=== PATIENT | female | born 1955 | race Caucasian/White ===

== ENCOUNTER 2019-06-03 08:29 | Day surgery (SDC) | payer MEDICARE, OTHER ==
[~2019-06-03 08:29] MED LIST: Propofol 200 MG/20 ML SDV ONE; fentaNYL 100 MCG/2 ML SDV ONE
[2019-06-03] MEDS ORDERED: Dextrose 5%-Lactated Ringers 1,000 ML IV SCH (09:15)
[2019-06-03] MEDS ORDERED: Glycopyrrolate 0.2 MG/ML 2 ML SDV IVPUSH ONE (10:00)
[2019-06-03] MEDS ORDERED: Pantoprazole 40 MG Vial IVPUSH ONE (10:56)
[2019-06-03 12:05] VITALS: BP 124/70; PULSE 97
--- NOTE | 2019-06-06 12:59 | OR ---
DATE OF PROCEDURE: 06/03/2019 SURGEON: Reynold Gaines MD PREOPERATIVE DIAGNOSIS: Probable gastroesophageal reflux disease. POSTOPERATIVE DIAGNOSIS: Small hiatal hernia associated with active gastroesophageal reflux disease. OPERATIVE PROCEDURE: Esophagogastroduodenoscopy with biopsy of esophagogastric junction. ANESTHESIA: IV sedation. INDICATION FOR PROCEDURE: This is a 64-year-old presenting with ongoing cough. She does have some reflux related symptoms, and at this point, the question is whether or not the cough might be related to a reactive reflux disease. Plan is to proceed with upper GI endoscopy with biopsies and dilation as indicated. Potential risks including bleeding and perforation were discussed, and the patient wishes to proceed. DETAILS OF PROCEDURE: The patient was taken to the operating room and placed in a left lateral decubitus position. IV sedation was administered after which the upper GI endoscope was passed orally through the length of the esophagus into the stomach with retroflexion view of the fundus and thereafter through the pyloric channel and into the proximal duodenum. Findings included some redness in the hypopharynx and larynx consistent with some possible ongoing reflux. The upper esophageal sphincter and proximal esophagus were unremarkable. At the EG junction, the patient had a small hiatal hernia with wide-open esophagogastric junction and quite active appearing gastroesophageal reflux disease with the distal esophagus being reddened and edematous and some focal areas of fibrinous exudate present. No stricturing or plaque formation was seen. The remainder of the stomach and duodenal exams were unremarkable. At this point, biopsies obtained from the esophagogastric junction area and sent for histologic evaluation. Minimal bleeding from the biopsy sites was seen and the procedure then concluded. PLAN: The patient will be given Protonix 40 mg IV in the recovery room and will be started on Protonix 40 mg daily. I will have the patient see NALDO Saeed, at [facility] in about 3 weeks for followup of the cough and reflux disease. Over time if the cough fails to improve, one might consider an antireflux procedure as at this point it would be fairly evident that her cough at least to that extent is related to ongoing reflux. Reynold Gaines MD /[id number]
== END 2019-06-03 13:21 | disposition home or self-care (01) ==
LOC: JP.SDS 08:29
PROVIDERS: ATTEND Surgery
DX: K21.9 Gastro-esophageal reflux disease without esophagitis (principal); K44.9 Diaphragmatic hernia without obstruction or gangrene; K22.8 Other specified diseases of esophagus; F32.9 Major depressive disorder, single episode, unspecified
CPT/HCPCS: 43239; C9113; J2704; J3010; J3490; J7042; 88305

== ENCOUNTER 2020-10-27 05:50 | Emergency (ER) | payer MEDICARE, OTHER ==
[2020-10-27 06:14] VITALS: PULSE 94
[2020-10-27] MEDS ORDERED: Aspirin 81 MG Tab.Chew PO ONE (06:30)
[2020-10-27] MEDS ORDERED: Alum Hydrox/Mag Hydrox/Simeth 15 ML, Lidocaine 2% 15 ML PO ONE ×2 (06:31)
--- NOTE | 2020-10-27 06:35 | EDM.PDOC ---
<OfficerGrant - Last Filed: 10/27/20 06:32> ED HPI GENERAL MEDICAL PROBLEM - General Chief Complaint: Chest Pain Stated Complaint: CHEST PAIN Time Seen by Provider: 10/27/20 06:25 Source of Information: Reports: Patient, RN Notes Reviewed History Limitations: Reports: No Limitations - History of Present Illness INITIAL COMMENTS - FREE TEXT/NARRATIVE: 65-year-old female presents emergency department a complaint of chest pain, she states that chest pain for about 24 hours has had abdominal discomfort reflux type for about 3 days has had poor oral intake she does admit to being under a lot of stress. Feels short of breath nauseated and diaphoretic with her chest pain shortness of breath increases with exertion. She has no known cardiac history does have a history of reflux. Admits she is quite anxious about no contact with other people for a year because of the pandemic. Chest Pain Score (Numeric/FACES): 3 - Related Data Allergies Allergy/AdvReac Type Severity Reaction Status Date / Time acetaminophen [From Vicodin] AdvReac Nausea Verified 10/27/20 06:08 hydrocodone bitartrate AdvReac Nausea Verified 10/27/20 06:08 [From Vicodin] meperidine HCl [From Demerol] AdvReac Nausea Verified 10/27/20 06:08 morphine AdvReac Nausea Verified 10/27/20 06:08 Home Meds: Home Meds buPROPion HCl [Bupropion Xl] 300 mg PO DAILY 08/22/15 [History] L.acidoph,Paracasei, B.lactis [Probiotic] 1 each PO DAILY 09/14/15 [History] Montelukast [Singulair] 10 mg PO DAILY 09/14/15 [History] Fluticasone Propionate [Flonase] 1 applic DEANDRE DAILY 06/03/19 [History] Oxybutynin [Oxybutynin ER] 5 mg PO DAILY 06/03/19 [History] polyethylene glycoL 3350 [MiraLAX] 17 gm PO DAILY 06/03/19 [History] Albuterol Sulfate [Albuterol Sulfate Hfa] 18 gm IH ASDIRECTED 10/27/20 [History] Benzonatate 100 mg PO BID 10/27/20 [History] Past Medical History HEENT History: Reports: Hard of Hearing, Impaired Vision, Sinusitis Respiratory History: Reports: Bronchitis, Recurrent Gastrointestinal History: Reports: Chronic Constipation, GERD, Hemorrhoids Genitourinary History: Reports: Urinary Incontinence 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: Reports: , Prolapsed Uterus Musculoskeletal History: Reports: Arthritis, Fracture Neurological History: Reports: Migraines Psychiatric History: Reports: Anxiety, Depression, Mood Swings - Infectious Disease History Infectious Disease History: Reports: Chicken Pox, Measles, Mumps, Pertussis (Whooping Cough) - Past Surgical History HEENT Surgical History: Reports: Oral Surgery Respiratory Surgical History: Reports: None GI Surgical History: Reports: Colonoscopy Female Surgical History: Reports: None Neurological Surgical History: Reports: None Musculoskeletal Surgical History: Reports: Arthroscopic Knee, Other (See Below) Other Musculoskeletal Surgeries/Procedures:: bunionectomy Social & Family History - Tobacco Use Tobacco Use Status *Q: Never Tobacco User - Caffeine Use Caffeine Use: Reports: None - Recreational Drug Use Recreational Drug Use: No ED ROS GENERAL - Review of Systems Review Of Systems: See Below Constitutional: Denies: Fever, Chills HEENT: Reports: No Symptoms Respiratory: Reports: Shortness of Breath Cardiovascular: Reports: Chest Pain, Dyspnea on Exertion GI/Abdominal: Reports: Abdominal Pain, Nausea. Denies: Constipation, Diarrhea, Vomiting : Reports: No Symptoms ED EXAM, GENERAL - Physical Exam Exam: See Below Exam Limited By: No Limitations General Appearance: Alert, Anxious Respiratory/Chest: No Respiratory Distress, Lungs Clear, Normal Breath Sounds, No Accessory Muscle Use, Chest Non-Tender Cardiovascular: Regular Rate, Rhythm, No Murmur GI/Abdominal: Normal Bowel Sounds, Soft, Non-Tender, No Organomegaly, No Distention Departure - Departure Disposition: Home, Self-Care 01 Clinical Impression: Gas pain Referrals: PCP,None [Primary Care Provider] - Forms: ED Department Discharge Additional Instructions: Increase your Miralax and fluids to keep stools soft and regular. Use simethicone per package instructions for gas. Recheck with your provider as needed. Sepsis Event Note (ED) - Evaluation Sepsis Screening Result: No Definite Risk <[place] - Last Filed: 10/27/20 09:20> ED HPI GENERAL MEDICAL PROBLEM Abdomen Pain Score (Numeric/FACES): 8 Course - Vital Signs Last Recorded V/S: Last Vital Signs Temp 35 C L 10/27/20 06:14 Pulse 94 02/23/21 07:29 Resp 16 10/27/20 07:29 BP 122/89 10/27/20 07:29 Pulse Ox 95 10/27/20 07:29 - Orders/Labs/Meds Orders: Active Orders 24 hr Category Date Time Status Cardiac Monitoring [RC] .As Directed Care 10/27/20 06:31 Active EKG Documentation Completion [RC] ASDIRECTED Care 10/27/20 06:31 Active EKG 12 Lead [EK] Stat Ther 10/27/20 06:31 Ordered Labs: Laboratory Tests 10/27/20 10/27/20 Range/Units 06:35 06:35 WBC 7.7 (4.5-11.0) K/uL RBC 5.05 (3.30-5.50) M/uL Hgb 14.1 (12.0-15.0) g/dL Hct 43.2 (36.0-48.0) % MCV 86 (80-98) fL MCH 28 (27-31) pg MCHC 33 (32-36) % Plt Count 240 (150-400) K/uL Neut % (Auto) 79 H (36-66) % Lymph % (Auto) 11 L (24-44) % [place] % (Auto) 7 H (2-6) % Eos % (Auto) 2 (2-4) % Baso % (Auto) 0 (0-1) % Sodium 141 (140-148) mmol/L Potassium 5.1 (3.6-5.2) mmol/L Chloride 101 (100-108) mmol/L Carbon Dioxide 31 (21-32) mmol/L Anion Gap 9.2 (5.0-14.0) mmol/L BUN 17 D (7-18) mg/dL Creatinine 0.9 (0.6-1.0) mg/dL Est Cr Clr Drug Dosing 50.18 mL/min Estimated GFR (MDRD) > 60 (>60) Glucose 116 H (74-106) mg/dL Calcium 9.5 (8.5-10.1) mg/dL Total Bilirubin 0.5 (0.2-1.0) mg/dL AST 19 (15-37) U/L ALT 20 (12-78) U/L Alkaline Phosphatase 94 (46-116) U/L Troponin I < 0.017 (0.000-0.056) ng/mL Total Protein 7.2 (6.4-8.2) g/dL Albumin 3.5 (3.4-5.0) g/dL Globulin 3.7 H (2.3-3.5) g/dL Albumin/Globulin Ratio 1.0 L (1.2-2.2) Meds: Medications Discontinued Medications Generic Name Dose Route Start Last Admin Trade Name Adryanq PRN Reason Stop Dose Admin Aspirin 324 mg 10/27/20 06:30 10/27/20 06:36 Aspirin PO 10/27/20 06:31 324 mg ONETIME ONE Administration Bisacodyl 10 mg 10/27/20 08:12 10/27/20 08:17 Dulcolax RECTAL 10/27/20 08:13 10 mg ONETIME ONE Administration Al Hydroxide/Mg Hydroxide 15 0 ml 10/27/20 06:31 10/27/20 06:37 ml/ Lidocaine HCl 15 ml PO 10/27/20 06:32 15 ml ONETIME ONE Administration Lorazepam 0.5 mg 10/27/20 06:49 10/27/20 06:56 Ativan PO 10/27/20 06:50 Not Given ONETIME ONE Ondansetron HCl 4 mg 10/27/20 07:42 10/27/20 07:47 Zofran Odt PO 10/27/20 07:43 4 mg ONETIME ONE Administration Simethicone 160 mg 10/27/20 07:03 10/27/20 07:08 Simethicone PO 10/27/20 07:04 160 mg ONETIME ONE Administration - Radiology Interpretation Free Text/Narrative:: CXR-increased intestinal air seen, no chest pathology Flat/upright abd [id number] amount of air and stool present - Re-Assessments/Exams Free Text/Narrative Re-Assessment/Exam: 10/27/20 09:18 Feeling better after simethicone and a BM w/dulcolax. Departure - Departure Time of Disposition: 09:18 Condition: Fair Sepsis Event Note (ED) - Focused Exam Vital Signs: Vital Signs Temp Pulse Resp BP Pulse Ox 10/27/20 07:29 94 16 122/89 95 10/27/20 06:14 35 C L 94 13 139/75 98
[2020-10-27] MEDS ORDERED: LORazepam 0.5 MG Tab PO ONE (06:49)
[2020-10-27] MEDS ORDERED: Simethicone 80 MG Tab.Chew PO ONE (07:03)
[2020-10-27 07:30] VITALS: BP 122/89
[2020-10-27] MEDS ORDERED: Ondansetron 4 MG Tab.DIS PO ONE (07:42)
[2020-10-27] MEDS ORDERED: Bisacodyl 10 MG Supp RECTAL ONE (08:12)
--- NOTE | 2020-10-27 09:10 | CR ---
Chest 1V Frontal, Abdomen 2V AP Flat Upright CLINICAL HISTORY: Chest pain FINDINGS: The heart size, pulmonary vascularity and hilar structures are normal. No infiltrate effusion or pneumothorax is seen. There are atherosclerotic changes in the aorta. IMPRESSION: No acute cardiopulmonary process Abdomen 2V AP Flat Upright CLINICAL HISTORY: Chest and abdominal pain FINDINGS: No free air is identified. There is a mild gaseous distention of the stomach. There are scattered air-filled loops of small bowel and colon in a nonacute pattern. IMPRESSION: Mild gaseous distention in a nonacute pattern
== END 2020-10-27 09:37 | disposition home or self-care (01) ==
LOC: JP.ED 05:50
DX: R14.1 Gas pain (principal); Z88.5 Allergy status to narcotic agent
CPT/HCPCS: 36415; 71045; 74019; 80053; 84484; 85025; 93005; 99284; 99285; A9270

== ENCOUNTER 2022-07-15 07:13 | Day surgery (SDC) | payer MEDICARE, OTHER ==
[2022-07-15] MEDS ORDERED: fentaNYL 50 MCG/ML SDV ONE (07:24)
[2022-07-15] MEDS ORDERED: Propofol 200 MG/20 ML SDV ONE (07:24)
[2022-07-15] MEDS ORDERED: Midazolam 1 MG/ML 2 ML SDV ONE (07:24)
[2022-07-15] MEDS ORDERED: Sodium Chloride 0.9% 1,000 ML IV SCH (08:00)
== END 2022-07-15 10:30 | disposition home or self-care (01) ==
LOC: JP.SDS 07:13
PROVIDERS: ATTEND Surgery
DX: Z12.11 Encounter for screening for malignant neoplasm of colon (principal); K57.30 Diverticulosis of large intestine without perforation or abscess without bleeding; Z88.6 Allergy status to analgesic agent
CPT/HCPCS: G0121; J2250; J2704; J3010; J7030

== ENCOUNTER 2022-10-07 08:04 | Emergency (ER) | payer MEDICARE, OTHER ==
[2022-10-07] MEDS ORDERED: Ondansetron 4 MG/2 ML SDV IVPUSH ONE (09:19)
[2022-10-07] MEDS ORDERED: Ondansetron 4 MG/2 ML SDV ONE (09:27)
== END 2022-10-07 11:36 | disposition home or self-care (01) ==
LOC: JP.ED 08:04
DX: R11.2 Nausea with vomiting, unspecified (principal); R42 Dizziness and giddiness; K21.9 Gastro-esophageal reflux disease without esophagitis; F41.9 Anxiety disorder, unspecified; F32.A Depression, unspecified; Z79.899 Other long term (current) drug therapy; Z88.5 Allergy status to narcotic agent
CPT/HCPCS: 70450; 70450-26; 72192; 72192-26; 96374; 99283; 99284-25; J2405

== ENCOUNTER 2023-04-08 07:17 | Emergency (ER) | payer MEDICARE, OTHER ==
[2023-04-08] MEDS ORDERED: Prochlorperazine 10 MG/2 ML SDV IVPUSH ONE (08:07)
[2023-04-08] MEDS ORDERED: Sodium Chloride 0.9% 1,000 ML IV SCH (08:15)
[2023-04-08 08:23] LABS: HEMATOCRIT 42.6 % (34.3-46.0); HEMOGLOBIN 14.4 g/dL (11.2-15.5); MEAN CORPUSCULAR HEMOGLOBIN 28.5 pg (31.6-35.5); MEAN CORPUSCULAR HGB CONC 33.8 g/dL (31.6-35.5); MEAN CORPUSCULAR VOLUME 84.2 fL (81.4-99.0); RED BLOOD CELL COUNT 5.06 M/uL (3.77-5.24); WHITE BLOOD CELL COUNT,WBC 7.7 K/uL (3.2-11.0)
[2023-04-08 08:25] LABS: APPEARANCE,URINE CLEAR (CLEAR); BILIRUBIN,URINE NEGATIVE (NEGATIVE); COLOR,URINE YELLOW (YELLOW); GLUCOSE,URINE NEGATIVE (NEGATIVE); KETONES,URINE NEGATIVE (NEGATIVE); LEUKOCYTE ESTERASE,URINE NEGATIVE (NEGATIVE); NITRITE,URINE NEGATIVE (NEGATIVE); OCCULT BLOOD,URINE NEGATIVE (NEGATIVE); PH,URINE 6.5 (5.0-8.0); PROTEIN,URINE NEGATIVE (NEGATIVE); UROBILINOGEN,URINE 0.2 EU/dL (0.2-1.0)
[2023-04-08 08:26] LABS: BASE EXCESS VENOUS 3.9 mm/L; BICARBONATE,VENOUS 29.8 mmol/L; CARBOXYHEMOGLOBIN 2.1 % (0.0-1.6); METHEMOGLOBIN 0.5 %; O2 SATURATION VENOUS 80.7; OXYHEMOGLOBIN 78.6 %; PCO2 VENOUS 51.8 mm/Hg; PH,VENOUS 7.377 (7.350-7.450); TOTAL HEMOGLOBIN 14.8 g/dL (12.0-16.0)
[2023-04-08 08:30] LABS: PO2 VENOUS 49.3 mm/Hg
[2023-04-08 08:31] LABS: AMORPHOUS SEDIMENT,URINE NOT SEEN; BACTERIA,URINE NOT SEEN; EPITHELIAL CELLS,URINE FEW; MUCUS,URINE NOT SEEN; RBC,URINE NOT SEEN (0-5); WBC,URINE NOT SEEN (0-5)
[2023-04-08 08:55] LABS: ALANINE AMINOTRANSFERASE,ALT 21 U/L (12-78); ALBUMIN 3.5 g/dL (3.4-5.0); ALKALINE PHOSPHATASE 85 U/L (46-116); ASPARTATE AMNIOTRANSFERASE,AST 16 U/L (15-37); BILIRUBIN TOTAL 0.4 mg/dL (0.2-1.0); BLOOD UREA NITROGEN,BUN 11 mg/dL (7-18); CALCIUM 9.1 mg/dL (8.5-10.1); CARBON DIOXIDE,CO2 31 mmol/L (21-32); CHLORIDE,CL 102 mmol/L (100-108); CREATININE 0.8 mg/dL (0.6-1.0); EST CRCL DRUG DOSING (CG) 54.13 mL/min; ESTIMATED GFR 79 mL/min (>60); GLUCOSE RANDOM 108 mg/dL (74-106); PROTEIN TOTAL,TP 7.1 g/dL (6.4-8.2); SODIUM,NA 139 mmol/L (140-148)
== END 2023-04-08 10:12 | disposition home or self-care (01) ==
LOC: JP.ED 07:17
DX: E86.0 Dehydration (principal); K21.9 Gastro-esophageal reflux disease without esophagitis; Z79.899 Other long term (current) drug therapy; Z88.5 Allergy status to narcotic agent; Z88.8 Allergy status to other drugs, medicaments and biological substances
CPT/HCPCS: 36415; 80053; 81001; 82803; 83605; 85027; 96361; 96374; 99284; J0780; J7030; 99283

== ENCOUNTER 2023-04-23 07:26 | Emergency (ER) | payer MEDICARE, OTHER ==
[2023-04-23] MEDS ORDERED: Ketorolac 30 MG/ML SDV IVPUSH ONE (08:16)
[2023-04-23] MEDS ORDERED: Ondansetron 4 MG/2 ML SDV IVPUSH ONE (08:16)
[2023-04-23] MEDS ORDERED: Sodium Chloride 0.9% 10 ML Syringe FLUSH PRN ×2 (08:16→08:57)
[2023-04-23] MEDS ORDERED: Sodium Chloride 0.9% 1,000 ML IV SCH (08:30)
[2023-04-23 08:37] LABS: BASOPHILS ABSOLUTE AUTO 0.07 K/uL (0.00-0.10); BASOPHILS PERCENT AUTO 0.7 % (0.1-1.3); EOSINOPHILS ABSOLUTE AUTO 0.28 K/uL (0.00-0.40); EOSINOPHILS PERCENT AUTO 2.9 % (0.0-5.4); HEMATOCRIT 41.7 % (34.3-46.0); HEMOGLOBIN 14.3 g/dL (11.2-15.5); IMMATURE GRAN ABSOLUTE AUTO 0.05 K/uL (0.00-0.23); IMMATURE GRAN PERCENT AUTO 0.5 % (0.0-0.7); LYMPHOCYTES ABSOLUTE AUTO 1.16 K/uL (0.8-3.3); MEAN CORPUSCULAR HEMOGLOBIN 28.8 pg (31.6-35.5); MEAN CORPUSCULAR HGB CONC 34.3 g/dL (31.6-35.5); MEAN CORPUSCULAR VOLUME 84.1 fL (81.4-99.0); MONOCYTES ABSOLUTE AUTO 0.54 K/uL (0.20-0.90); MONOCYTES PERCENT AUTO 5.6 % (3.3-12.6); NEUTROPHILS PERCENT AUTO 78.3 % (40.0-78.1); PLATELET COUNT,PLT 220 K/uL (130-375); RED BLOOD CELL COUNT 4.96 M/uL (3.77-5.24); WHITE BLOOD CELL COUNT,WBC 9.7 K/uL (3.2-11.0)
[2023-04-23 08:57] LABS: A/G RATIO 0.9 (1.2-2.2); ALANINE AMINOTRANSFERASE,ALT 21 U/L (12-78); ALBUMIN 3.4 g/dL (3.4-5.0); ALKALINE PHOSPHATASE 82 U/L (46-116); ASPARTATE AMNIOTRANSFERASE,AST 18 U/L (15-37); BILIRUBIN TOTAL 0.4 mg/dL (0.2-1.0); BLOOD UREA NITROGEN,BUN 10 mg/dL (7-18); CALCIUM 8.9 mg/dL (8.5-10.1); CARBON DIOXIDE,CO2 30 mmol/L (21-32); CHLORIDE,CL 102 mmol/L (100-108); CREATININE 0.8 mg/dL (0.6-1.0); EST CRCL DRUG DOSING (CG) 54.13 mL/min; ESTIMATED GFR 79 mL/min (>60); GLUCOSE RANDOM 111 mg/dL (74-106); POTASSIUM,K 4.2 mmol/L (3.6-5.2); PROTEIN TOTAL,TP 7.1 g/dL (6.4-8.2); SODIUM,NA 139 mmol/L (140-148)
[2023-04-23] MEDS ORDERED: Sodium Chloride 0.9% 50 ML IV ONE (08:57)
[2023-04-23] MEDS ORDERED: Iopamidol 612 MG/ML 100 ML Bottle IV PRN (08:57)
[2023-04-23 09:02] LABS: ANION GAP 11.2 mmol/L (5.0-14.0)
[2023-04-23 09:03] LABS: AMORPHOUS SEDIMENT,URINE FEW; APPEARANCE,URINE SLIGHTLY CLOUDY (CLEAR); BACTERIA,URINE RARE; BILIRUBIN,URINE NEGATIVE (NEGATIVE); COLOR,URINE YELLOW (YELLOW); EPITHELIAL CELLS,URINE RARE; GLUCOSE,URINE NEGATIVE (NEGATIVE); KETONES,URINE NEGATIVE (NEGATIVE); LEUKOCYTE ESTERASE,URINE NEGATIVE (NEGATIVE); MUCUS,URINE MANY; NITRITE,URINE NEGATIVE (NEGATIVE); OCCULT BLOOD,URINE NEGATIVE (NEGATIVE); PROTEIN,URINE NEGATIVE (NEGATIVE); RBC,URINE 0-5 (0-5); UROBILINOGEN,URINE 0.2 EU/dL (0.2-1.0); WBC,URINE 0-5 (0-5)
== END 2023-04-23 10:59 | disposition home or self-care (01) ==
LOC: JP.ED 07:26
DX: R10.84 Generalized abdominal pain (principal); Z79.899 Other long term (current) drug therapy; Z88.5 Allergy status to narcotic agent; Z88.8 Allergy status to other drugs, medicaments and biological substances
CPT/HCPCS: 36415; 74177; 80053; 81001; 83605; 83690; 85025; 96361; 96374; 96375; 99284; J1885; J2405; J3490; J7030; Q9967

== ENCOUNTER 2023-04-26 04:07 | Inpatient (IN) | payer MEDICARE, OTHER ==
[2023-04-26 05:02] LABS: BASOPHILS ABSOLUTE AUTO 0.06 K/uL (0.00-0.10); BASOPHILS PERCENT AUTO 0.7 % (0.1-1.3); EOSINOPHILS ABSOLUTE AUTO 0.29 K/uL (0.00-0.40); EOSINOPHILS PERCENT AUTO 3.5 % (0.0-5.4); HEMATOCRIT 41.2 % (34.3-46.0); HEMOGLOBIN 13.7 g/dL (11.2-15.5); IMMATURE GRAN ABSOLUTE AUTO 0.03 K/uL (0.00-0.23); IMMATURE GRAN PERCENT AUTO 0.4 % (0.0-0.7); LYMPHOCYTES ABSOLUTE AUTO 1.26 K/uL (0.8-3.3); LYMPHOCYTES PERCENT AUTO 15.4 % (11.4-47.7); MEAN CORPUSCULAR HEMOGLOBIN 28.1 pg (31.6-35.5); MEAN CORPUSCULAR HGB CONC 33.3 g/dL (31.6-35.5); MEAN CORPUSCULAR VOLUME 84.6 fL (81.4-99.0); MONOCYTES PERCENT AUTO 7.3 % (3.3-12.6); NEUTROPHILS ABSOLUTE AUTO 5.94 K/uL (1.0-7.6); NEUTROPHILS PERCENT AUTO 72.7 % (40.0-78.1); PLATELET COUNT,PLT 215 K/uL (130-375); RED BLOOD CELL COUNT 4.87 M/uL (3.77-5.24); WHITE BLOOD CELL COUNT,WBC 8.2 K/uL (3.2-11.0)
[2023-04-26] MEDS ORDERED: Ondansetron 4 MG Tab.DIS PO ONE (05:18)
[2023-04-26 05:26] LABS: A/G RATIO 0.9 (1.2-2.2); ALANINE AMINOTRANSFERASE,ALT 20 U/L (12-78); ALBUMIN 3.3 g/dL (3.4-5.0); ALKALINE PHOSPHATASE 77 U/L (46-116); ANION GAP 5.6 mmol/L (5.0-14.0); ASPARTATE AMNIOTRANSFERASE,AST 16 U/L (15-37); BILIRUBIN TOTAL 0.5 mg/dL (0.2-1.0); BLOOD UREA NITROGEN,BUN 7 mg/dL (7-18); CALCIUM 8.9 mg/dL (8.5-10.1); CARBON DIOXIDE,CO2 30 mmol/L (21-32); CHLORIDE,CL 104 mmol/L (100-108); CREATININE 0.9 mg/dL (0.6-1.0); EST CRCL DRUG DOSING (CG) 48.11 mL/min; ESTIMATED GFR 69 mL/min (>60); GLUCOSE RANDOM 106 mg/dL (74-106); POTASSIUM,K 3.9 mmol/L (3.6-5.2); PROTEIN TOTAL,TP 6.9 g/dL (6.4-8.2); SODIUM,NA 140 mmol/L (140-148)
[2023-04-26 05:31] LABS: APPEARANCE,URINE CLEAR (CLEAR); BILIRUBIN,URINE NEGATIVE (NEGATIVE); COLOR,URINE YELLOW (YELLOW); GLUCOSE,URINE NEGATIVE (NEGATIVE); KETONES,URINE NEGATIVE (NEGATIVE); LEUKOCYTE ESTERASE,URINE NEGATIVE (NEGATIVE); NITRITE,URINE NEGATIVE (NEGATIVE); OCCULT BLOOD,URINE NEGATIVE (NEGATIVE); PH,URINE 6.5 (5.0-8.0); PROTEIN,URINE NEGATIVE (NEGATIVE); UROBILINOGEN,URINE 0.2 EU/dL (0.2-1.0)
[2023-04-26 05:38] LABS: RBC,URINE 0-5 (0-5); WBC,URINE 0-5 (0-5)
[2023-04-26 05:39] LABS: AMORPHOUS SEDIMENT,URINE NOT SEEN; BACTERIA,URINE RARE; EPITHELIAL CELLS,URINE FEW; MUCUS,URINE MODERATE
[2023-04-26] MEDS ORDERED: Lactated Ringers 1,000 ML IV SCH (11:15)
[2023-04-26] MEDS: Pantoprazole 40 MG Vial IV SCH (11:29)
[2023-04-26] MEDS: buPROPion 150 MG Tab.ER PO SCH (14:43)
[2023-04-26] MEDS: Oxybutynin 5 MG Tab PO SCH ×2 (15:11→20:37)
[2023-04-26] MEDS: Polyethylene Glycol 3350 Powder 17 GM Packet PO SCH (15:11)
[2023-04-26] MEDS: Azelastine Nasal Soln 30 ML Spray Bottle NAS SCH ×2 (16:51→20:37)
[2023-04-26] MEDS: Dextrose 5%-Lactated Ringers 1,000 ML IV SCH (19:18)
[2023-04-26] MEDS: Montelukast 10 MG Tab PO SCH (20:37)
[2023-04-26] MEDS: Benzonatate 100 MG Cap PO SCH (20:39)
[2023-04-27] MEDS: Dextrose 5%-Lactated Ringers 1,000 ML IV SCH (03:16)
[2023-04-27] MEDS ORDERED: Acetaminophen 1,000 MG in Premix Bag 1 BAG IV ONE (03:23)
[2023-04-27] MEDS ORDERED: Ondansetron 4 MG/2 ML SDV IVPUSH PRN (03:29)
[2023-04-27 04:50] LABS: BASOPHILS ABSOLUTE AUTO 0.05 K/uL (0.00-0.10); BASOPHILS PERCENT AUTO 0.8 % (0.1-1.3); EOSINOPHILS ABSOLUTE AUTO 0.27 K/uL (0.00-0.40); EOSINOPHILS PERCENT AUTO 4.2 % (0.0-5.4); HEMATOCRIT 35.9 % (34.3-46.0); HEMOGLOBIN 12.2 g/dL (11.2-15.5); IMMATURE GRAN PERCENT AUTO 0.2 % (0.0-0.7); LYMPHOCYTES PERCENT AUTO 23.4 % (11.4-47.7); MEAN CORPUSCULAR HEMOGLOBIN 28.8 pg (31.6-35.5); MEAN CORPUSCULAR VOLUME 84.7 fL (81.4-99.0); MONOCYTES ABSOLUTE AUTO 0.61 K/uL (0.20-0.90); MONOCYTES PERCENT AUTO 9.5 % (3.3-12.6); NEUTROPHILS ABSOLUTE AUTO 3.96 K/uL (1.0-7.6); NEUTROPHILS PERCENT AUTO 61.9 % (40.0-78.1); PLATELET COUNT,PLT 189 K/uL (130-375); RED BLOOD CELL COUNT 4.24 M/uL (3.77-5.24); WHITE BLOOD CELL COUNT,WBC 6.4 K/uL (3.2-11.0)
[2023-04-27 04:56] LABS: IMMATURE GRAN ABSOLUTE AUTO 0.01 K/uL (0.00-0.23)
[2023-04-27 05:12] LABS: ALANINE AMINOTRANSFERASE,ALT 17 U/L (12-78); ALBUMIN 2.8 g/dL (3.4-5.0); ALKALINE PHOSPHATASE 62 U/L (46-116); ANION GAP 4.1 mmol/L (5.0-14.0); ASPARTATE AMNIOTRANSFERASE,AST 10 U/L (15-37); BILIRUBIN TOTAL 0.5 mg/dL (0.2-1.0); BLOOD UREA NITROGEN,BUN 4 mg/dL (7-18); CALCIUM 8.4 mg/dL (8.5-10.1); CARBON DIOXIDE,CO2 32 mmol/L (21-32); CHLORIDE,CL 105 mmol/L (100-108); CREATININE 0.7 mg/dL (0.6-1.0); EST CRCL DRUG DOSING (CG) 61.86 mL/min; ESTIMATED GFR 93 mL/min (>60); GLUCOSE RANDOM 102 mg/dL (74-106); MAGNESIUM 1.8 mg/dL (1.8-2.4); PHOSPHORUS 3.7 mg/dL (2.5-4.9); POTASSIUM,K 3.7 mmol/L (3.6-5.2); PRO B-TYPE NATRIUR PEPT,BNPPRO 162 pg/mL (5-125); PROTEIN TOTAL,TP 5.7 g/dL (6.4-8.2); SODIUM,NA 141 mmol/L (140-148)
[2023-04-27] MEDS ORDERED: Metoclopramide 10 MG/2 ML SDV IVPUSH ONE (06:03)
[2023-04-27] MEDS: Azelastine Nasal Soln 30 ML Spray Bottle NAS SCH ×2 (08:23→21:05)
[2023-04-27] MEDS ORDERED: buPROPion 150 MG Tab.ER PO SCH (09:00)
[2023-04-27] MEDS ORDERED: Propofol 200 MG/20 ML SDV ONE (10:13)
[2023-04-27] MEDS ORDERED: fentaNYL 50 MCG/ML SDV ONE (10:13)
[2023-04-27] MEDS: Polyethylene Glycol 3350 Powder 17 GM Packet PO SCH ×2 (13:06→15:29)
[2023-04-27] MEDS: buPROPion 150 MG Tab.ER PO SCH ×2 (13:07→15:28)
[2023-04-27] MEDS: Benzonatate 100 MG Cap PO SCH ×3 (13:07→21:06)
[2023-04-27] MEDS: Pantoprazole 40 MG Vial IV SCH (13:07)
[2023-04-27] MEDS: Oxybutynin 5 MG Tab PO SCH ×2 (13:07→21:06)
[2023-04-27] MEDS ORDERED: Ibuprofen 600 MG Tab PO PRN (15:08)
[2023-04-27] MEDS: Metoclopramide 10 MG/2 ML SDV IVPUSH SCH ×2 (15:27→21:06)
[2023-04-27] MEDS ORDERED: Trolamine Salicylate/Aloe Vera 10% Crm 85 GM Tube TOP PRN (17:27)
[2023-04-27] MEDS: Montelukast 10 MG Tab PO SCH (21:06)
[2023-04-28] MEDS: Metoclopramide 10 MG/2 ML SDV IVPUSH SCH (05:42)
[2023-04-28] MEDS: Azelastine Nasal Soln 30 ML Spray Bottle NAS SCH (08:30)
[2023-04-28] MEDS: Oxybutynin 5 MG Tab PO SCH (08:30)
[2023-04-28] MEDS: buPROPion 150 MG Tab.ER PO SCH (08:31)
[2023-04-28] MEDS: Benzonatate 100 MG Cap PO SCH (08:31)
[2023-04-28] MEDS: Polyethylene Glycol 3350 Powder 17 GM Packet PO SCH (08:43)
== END 2023-04-28 10:00 | disposition home or self-care (01) | DRG 641 ==
LOC: JP.ED 04:07 → JP.MS 08:11
PROVIDERS: ADMIT Surgery; ATTEND Surgery
PROC: 0DB48ZX Excision of Esophagogastric Junction, Via Natural or Artificial Opening Endoscopic, Diagnostic (ICD-10-PCS; principal; 2023-04-27)
DX: E86.0 Dehydration (principal); R13.10 Dysphagia, unspecified; F32.A Depression, unspecified; Z20.822 Contact with and (suspected) exposure to COVID-19; R11.0 Nausea; F41.9 Anxiety disorder, unspecified; K59.09 Other constipation; K21.9 Gastro-esophageal reflux disease without esophagitis; R10.84 Generalized abdominal pain; R32 Unspecified urinary incontinence; G43.909 Migraine, unspecified, not intractable, without status migrainosus; K44.9 Diaphragmatic hernia without obstruction or gangrene; G44.209 Tension-type headache, unspecified, not intractable; R11.2 Nausea with vomiting, unspecified; Z87.39 Personal history of other diseases of the musculoskeletal system and connective tissue; Z88.6 Allergy status to analgesic agent; Z88.5 Allergy status to narcotic agent; Z79.899 Other long term (current) drug therapy
CPT/HCPCS: 36415; 80053; 81001; 83690; 84484; 85025; 86140; 93005; 93010; 99284; 99285; Q0162; U0002; 70450; 70450-26; 83735; 83880; 84100; 88305; A9270-GY; C9113; J0131; J2405; J2704; J2765; J3010; J7120; J7121

== ENCOUNTER 2023-05-14 06:00 | Emergency (ER) | payer MEDICARE, OTHER ==
[2023-05-14] MEDS ORDERED: Sodium Chloride 0.9% 10 ML Syringe FLUSH PRN ×2 (06:30→07:08)
[2023-05-14] MEDS ORDERED: Sodium Chloride 0.9% 1,000 ML IV STA (06:30)
[2023-05-14] MEDS ORDERED: Ondansetron 4 MG/2 ML SDV IVPUSH ONE (06:33)
[2023-05-14] MEDS ORDERED: fentaNYL 100 MCG/2 ML SDV IVPUSH ONE (06:33)
[2023-05-14 06:48] LABS: BASOPHILS ABSOLUTE AUTO 0.06 K/uL (0.00-0.10); BASOPHILS PERCENT AUTO 0.8 % (0.1-1.3); EOSINOPHILS ABSOLUTE AUTO 0.38 K/uL (0.00-0.40); EOSINOPHILS PERCENT AUTO 4.9 % (0.0-5.4); HEMATOCRIT 40.1 % (34.3-46.0); HEMOGLOBIN 13.3 g/dL (11.2-15.5); IMMATURE GRAN PERCENT AUTO 0.3 % (0.0-0.7); LYMPHOCYTES ABSOLUTE AUTO 1.32 K/uL (0.8-3.3); LYMPHOCYTES PERCENT AUTO 17.1 % (11.4-47.7); MEAN CORPUSCULAR HEMOGLOBIN 27.9 pg (31.6-35.5); MEAN CORPUSCULAR HGB CONC 33.2 g/dL (31.6-35.5); MEAN CORPUSCULAR VOLUME 84.1 fL (81.4-99.0); MONOCYTES ABSOLUTE AUTO 0.62 K/uL (0.20-0.90); NEUTROPHILS ABSOLUTE AUTO 5.32 K/uL (1.0-7.6); NEUTROPHILS PERCENT AUTO 68.9 % (40.0-78.1); PLATELET COUNT,PLT 229 K/uL (130-375); RED BLOOD CELL COUNT 4.77 M/uL (3.77-5.24); WHITE BLOOD CELL COUNT,WBC 7.7 K/uL (3.2-11.0)
[2023-05-14 06:56] LABS: IMMATURE GRAN ABSOLUTE AUTO 0.02 K/uL (0.00-0.23)
[2023-05-14 06:58] LABS: APPEARANCE,URINE CLOUDY (CLEAR); BILIRUBIN,URINE NEGATIVE (NEGATIVE); COLOR,URINE YELLOW (YELLOW); GLUCOSE,URINE NEGATIVE (NEGATIVE); KETONES,URINE NEGATIVE (NEGATIVE); LEUKOCYTE ESTERASE,URINE TRACE (NEGATIVE); NITRITE,URINE NEGATIVE (NEGATIVE); OCCULT BLOOD,URINE TRACE-INTACT (NEGATIVE); PROTEIN,URINE NEGATIVE (NEGATIVE); UROBILINOGEN,URINE 0.2 EU/dL (0.2-1.0)
[2023-05-14 07:03] LABS: RBC,URINE 0-5 (0-5); WBC,URINE 0-5 (0-5)
[2023-05-14 07:04] LABS: AMORPHOUS SEDIMENT,URINE MODERATE; BACTERIA,URINE FEW; EPITHELIAL CELLS,URINE FEW; MUCUS,URINE FEW
[2023-05-14] MEDS ORDERED: Iopamidol 612 MG/ML 100 ML Bottle IV PRN (07:08)
[2023-05-14 07:11] LABS: ALANINE AMINOTRANSFERASE,ALT 19 U/L (12-78); ALBUMIN 3.4 g/dL (3.4-5.0); ALKALINE PHOSPHATASE 78 U/L (46-116); ASPARTATE AMNIOTRANSFERASE,AST 17 U/L (15-37); BILIRUBIN TOTAL 0.6 mg/dL (0.2-1.0); BLOOD UREA NITROGEN,BUN 10 mg/dL (7-18); CALCIUM 8.5 mg/dL (8.5-10.1); CARBON DIOXIDE,CO2 29 mmol/L (21-32); CHLORIDE,CL 101 mmol/L (100-108); CREATININE 0.8 mg/dL (0.6-1.0); EST CRCL DRUG DOSING (CG) 54.13 mL/min; ESTIMATED GFR 79 mL/min (>60); GLUCOSE RANDOM 103 mg/dL (74-106); POTASSIUM,K 4.3 mmol/L (3.6-5.2); PROTEIN TOTAL,TP 6.8 g/dL (6.4-8.2); SODIUM,NA 137 mmol/L (140-148); TROPONIN I HIGH SENSITIVITY 6.5 pg/mL (<=60.3)
[2023-05-14 07:12] LABS: ANION GAP 11.3 mmol/L (5.0-14.0)
[2023-05-14] MEDS ORDERED: Sodium Chloride 0.9% 50 ML IV SCH (07:15)
== END 2023-05-14 09:01 | disposition home or self-care (01) ==
LOC: JP.ED 06:00
DX: K80.50 Calculus of bile duct without cholangitis or cholecystitis without obstruction (principal); Z88.8 Allergy status to other drugs, medicaments and biological substances; Z88.5 Allergy status to narcotic agent
CPT/HCPCS: 36415; 74177; 80053; 81001; 83605; 83690; 84484; 85025; 96361; 96374; 96375; 99284; J2405; J3010; J3490; J7030; Q9967

== ENCOUNTER 2023-05-26 08:17 | Day surgery (SDC) | payer MEDICARE, OTHER ==
[~2023-05-26 08:17] MED LIST changes: +Dexamethasone 4 MG/ML SDV ONE; +Glycopyrrolate 0.2 MG/ML 5 ML MDV ONE; +Lidocaine 1% 50 ML MDV ONE; +Neostigmine Methylsulfate 1 MG/ML 5 ML Syringe ONE; +Ondansetron 4 MG/2 ML SDV ONE; +Rocuronium 50 MG/5 ML Vial ONE; +Succinylcholine 200 MG/10 ML MDV ONE; -fentaNYL 100 MCG/2 ML SDV ONE; +fentaNYL 250 MCG/5 ML SDV ONE
[2023-05-26 08:42] LABS: HEMATOCRIT 47.2 % (34.3-46.0); HEMOGLOBIN 15.8 g/dL (11.2-15.5); MEAN CORPUSCULAR HEMOGLOBIN 28.6 pg (31.6-35.5); MEAN CORPUSCULAR HGB CONC 33.5 g/dL (31.6-35.5); MEAN CORPUSCULAR VOLUME 85.5 fL (81.4-99.0); RED BLOOD CELL COUNT 5.52 M/uL (3.77-5.24); WHITE BLOOD CELL COUNT,WBC 11.8 K/uL (3.2-11.0)
[2023-05-26] MEDS ORDERED: Indocyanine Green 25 MG SDV IV ONE (09:00)
[2023-05-26] MEDS ORDERED: Scopolamine 1.5 MG Transdermal Patch TOP SCH (09:00)
[2023-05-26 09:11] LABS: A/G RATIO 1.1 (1.2-2.2); ALANINE AMINOTRANSFERASE,ALT 26 U/L (12-78); ALBUMIN 4.1 g/dL (3.4-5.0); ALKALINE PHOSPHATASE 82 U/L (46-116); ASPARTATE AMNIOTRANSFERASE,AST 16 U/L (15-37); BILIRUBIN TOTAL 0.7 mg/dL (0.2-1.0); BLOOD UREA NITROGEN,BUN 8 mg/dL (7-18); CARBON DIOXIDE,CO2 32 mmol/L (21-32); CHLORIDE,CL 97 mmol/L (100-108); CREATININE 0.9 mg/dL (0.6-1.0); EST CRCL DRUG DOSING (CG) 48.11 mL/min; ESTIMATED GFR 69 mL/min (>60); GLUCOSE RANDOM 109 mg/dL (74-106); MAGNESIUM 1.9 mg/dL (1.8-2.4); PHOSPHORUS 3.5 mg/dL (2.5-4.9); POTASSIUM,K 3.7 mmol/L (3.6-5.2); SODIUM,NA 137 mmol/L (140-148)
[2023-05-26 09:18] LABS: ANION GAP 11.7 mmol/L (5.0-14.0)
[2023-05-26] MEDS: Dextrose 5%-Lactated Ringers 1,000 ML IV SCH ×2 (09:46→17:12)
[2023-05-26] MEDS ORDERED: Ketamine 500 MG/5 ML MDV IV SCH (10:15)
[2023-05-26] MEDS ORDERED: Ketamine 15 MG in Sodium Chloride 0.9% 19.85 ML IV SCH (10:15)
[2023-05-26] MEDS: cefOXitin 2 GM in Sodium Chloride 0.9% 50 ML IV ONE ×2 (11:04→11:20)
[2023-05-26] MEDS: Bupivacaine 0.5%/EPINEPHrine 1:200,000 50 ML MDV ONE ×2 (11:44→12:40)
[2023-05-26] MEDS ORDERED: Lidocaine 1% 50 ML MDV INJECT ONE ×2 (11:46→12:40)
[2023-05-26] MEDS ORDERED: fentaNYL 250 MCG/5 ML SDV ONE (12:09)
[2023-05-26] MEDS ORDERED: Labetalol 20 MG/4 ML Syringe ONE (12:09)
[2023-05-26] MEDS ORDERED: traMADol 50 MG Tab PO PRN (14:20)
[2023-05-26] MEDS: Ondansetron 4 MG/2 ML SDV IVPUSH PRN ×2 (15:24→21:03)
[2023-05-26] MEDS: Citalopram 20 MG Tab PO SCH (17:12)
[2023-05-26] MEDS ORDERED: Acetaminophen 325 MG Tab PO PRN (18:00)
[2023-05-26] MEDS: Oxybutynin 5 MG Tab PO SCH (20:57)
[2023-05-26] MEDS ORDERED: Montelukast 10 MG Tab PO SCH (21:00)
[2023-05-27] MEDS: Dextrose 5%-Lactated Ringers 1,000 ML IV SCH (03:19)
[2023-05-27] MEDS: Citalopram 20 MG Tab PO SCH (10:12)
[2023-05-27] MEDS: Oxybutynin 5 MG Tab PO SCH (10:13)
== END 2023-05-27 10:30 | disposition other institution (70) ==
LOC: JP.SDS 08:17 → JP.MS 15:58 → JP.SDS 05-27 10:30
PROVIDERS: ATTEND Surgery
DX: K82.8 Other specified diseases of gallbladder (principal); F32.A Depression, unspecified; E78.5 Hyperlipidemia, unspecified; F33.42 Major depressive disorder, recurrent, in full remission; E78.00 Pure hypercholesterolemia, unspecified; Z98.890 Other specified postprocedural states; Z79.899 Other long term (current) drug therapy
CPT/HCPCS: 36415; 47562; 80053; 83735; 84100; 85027; 93005; A9270; J0131; J0171; J0330; J0694; J1100; J2001; J2405; J2704; J2710; J2795; J3010; J3490; J7121; 88304; 93010

== ENCOUNTER 2023-06-02 07:09 | Emergency (ER) | payer MEDICARE, OTHER ==
[2023-06-02 08:19] LABS: BASOPHILS ABSOLUTE AUTO 0.04 K/uL (0.00-0.10); BASOPHILS PERCENT AUTO 0.4 % (0.1-1.3); EOSINOPHILS ABSOLUTE AUTO 0.19 K/uL (0.00-0.40); EOSINOPHILS PERCENT AUTO 1.8 % (0.0-5.4); HEMATOCRIT 41.9 % (34.3-46.0); HEMOGLOBIN 14.2 g/dL (11.2-15.5); IMMATURE GRAN ABSOLUTE AUTO 0.06 K/uL (0.00-0.23); IMMATURE GRAN PERCENT AUTO 0.6 % (0.0-0.7); LYMPHOCYTES ABSOLUTE AUTO 0.84 K/uL (0.8-3.3); LYMPHOCYTES PERCENT AUTO 8.1 % (11.4-47.7); MEAN CORPUSCULAR HGB CONC 33.9 g/dL (31.6-35.5); MEAN CORPUSCULAR VOLUME 85.5 fL (81.4-99.0); MONOCYTES ABSOLUTE AUTO 0.55 K/uL (0.20-0.90); MONOCYTES PERCENT AUTO 5.3 % (3.3-12.6); NEUTROPHILS ABSOLUTE AUTO 8.72 K/uL (1.0-7.6); NEUTROPHILS PERCENT AUTO 83.8 % (40.0-78.1); PLATELET COUNT,PLT 234 K/uL (130-375); WHITE BLOOD CELL COUNT,WBC 10.4 K/uL (3.2-11.0)
[2023-06-02] MEDS ORDERED: Iopamidol 612 MG/ML 100 ML Bottle IV ONE (08:39)
[2023-06-02] MEDS ORDERED: Sodium Chloride 0.9% 10 ML Syringe FLUSH ONE (08:39)
[2023-06-02] MEDS ORDERED: Sodium Chloride 0.9% 50 ML IV ONE (08:39)
[2023-06-02 08:44] LABS: ALANINE AMINOTRANSFERASE,ALT 25 U/L (12-78); ALBUMIN 3.5 g/dL (3.4-5.0); ALKALINE PHOSPHATASE 77 U/L (46-116); ASPARTATE AMNIOTRANSFERASE,AST 16 U/L (15-37); BILIRUBIN TOTAL 0.6 mg/dL (0.2-1.0); BLOOD UREA NITROGEN,BUN 12 mg/dL (7-18); CALCIUM 8.7 mg/dL (8.5-10.1); CARBON DIOXIDE,CO2 32 mmol/L (21-32); CHLORIDE,CL 100 mmol/L (100-108); CREATININE 0.7 mg/dL (0.6-1.0); EST CRCL DRUG DOSING (CG) 61.86 mL/min; ESTIMATED GFR 93 mL/min (>60); GLUCOSE RANDOM 109 mg/dL (74-106); PROTEIN TOTAL,TP 6.9 g/dL (6.4-8.2); SODIUM,NA 136 mmol/L (140-148)
== END 2023-06-02 11:09 | disposition home or self-care (01) ==
LOC: JP.ED 07:09
DX: K57.90 Diverticulosis of intestine, part unspecified, without perforation or abscess without bleeding (principal); K21.9 Gastro-esophageal reflux disease without esophagitis; Z86.16 Personal history of COVID-19; Z88.5 Allergy status to narcotic agent; Z79.899 Other long term (current) drug therapy
CPT/HCPCS: 36415; 74177; 80053; 83605; 83690; 85025; 99284; J3490; Q9967; 99283

== ENCOUNTER 2024-06-10 08:48 | Emergency (ER) | payer MEDICARE, OTHER ==
[2024-06-10 10:04] LABS: BASOPHILS ABSOLUTE AUTO 0.04 K/uL (0.00-0.10); BASOPHILS PERCENT AUTO 0.5 % (0.1-1.3); EOSINOPHILS ABSOLUTE AUTO 0.11 K/uL (0.00-0.40); EOSINOPHILS PERCENT AUTO 1.3 % (0.0-5.4); HEMATOCRIT 40.5 % (34.3-46.0); HEMOGLOBIN 14.2 g/dL (11.2-15.5); IMMATURE GRAN ABSOLUTE AUTO 0.05 K/uL (0.00-0.23); IMMATURE GRAN PERCENT AUTO 0.6 % (0.0-0.7); LYMPHOCYTES ABSOLUTE AUTO 0.99 K/uL (0.8-3.3); MEAN CORPUSCULAR HEMOGLOBIN 28.9 pg (31.6-35.5); MEAN CORPUSCULAR HGB CONC 35.1 g/dL (31.6-35.5); MEAN CORPUSCULAR VOLUME 82.3 fL (81.4-99.0); MONOCYTES ABSOLUTE AUTO 0.42 K/uL (0.20-0.90); MONOCYTES PERCENT AUTO 5.1 % (3.3-12.6); NEUTROPHILS ABSOLUTE AUTO 6.62 K/uL (1.0-7.6); NEUTROPHILS PERCENT AUTO 80.5 % (40.0-78.1); PLATELET COUNT,PLT 247 K/uL (130-375); RED BLOOD CELL COUNT 4.92 M/uL (3.77-5.24); WHITE BLOOD CELL COUNT,WBC 8.2 K/uL (3.2-11.0)
[2024-06-10 10:27] LABS: ANION GAP 9.4 mmol/L (5.0-14.0); CALCIUM 9.7 mg/dL (8.5-10.1); CREATININE 0.8 mg/dL (0.6-1.0); EST CRCL DRUG DOSING (CG) 53.35 mL/min; POTASSIUM,K 4.1 mmol/L (3.6-5.2); TROPONIN I HIGH SENSITIVITY 4.3 pg/mL (<=60.3)
[2024-06-10] MEDS: Alum Hydrox/Mag Hydrox/Simeth 15 ML, Lidocaine 2% 15 ML PO ONE (10:28)
[2024-06-10] MEDS: Iopamidol 755 Mg/ML 100 ML Bottle IV ONE (11:31)
[2024-06-10] MEDS: Sodium Chloride 0.9% 100 ML IV SCH (11:31)
== END 2024-06-10 12:43 | disposition home or self-care (01) ==
LOC: JP.ED 08:48
DX: K21.9 Gastro-esophageal reflux disease without esophagitis (principal); J40 Bronchitis, not specified as acute or chronic; Z86.16 Personal history of COVID-19; Z90.49 Acquired absence of other specified parts of digestive tract; Z79.899 Other long term (current) drug therapy; Z88.5 Allergy status to narcotic agent; Z88.8 Allergy status to other drugs, medicaments and biological substances
CPT/HCPCS: 36415; 71045; 71275; 80048; 84484; 85025; 85379; 93005; 99285; A9270; J3490; Q9967

== ENCOUNTER 2025-03-12 16:13 | Emergency (ER) | payer MEDICARE, OTHER ==
[2025-03-12] MEDS: Lidocaine 1% with EPINEPHrine 1:100,000 20 ML MDV INJECT ONE (19:04)
== END 2025-03-12 20:33 | disposition home or self-care (01) ==
LOC: JP.ED 16:13
DX: S01.01XA Laceration without foreign body of scalp, initial encounter (principal); S09.90XA Unspecified injury of head, initial encounter; S16.1XXA Strain of muscle, fascia and tendon at neck level, initial encounter; Z88.5 Allergy status to narcotic agent; X58.XXXA Exposure to other specified factors, initial encounter
CPT/HCPCS: 12002; 70450; 72125; 76377; 99283; A9270; J2004

== ENCOUNTER 2025-04-25 06:56 | Day surgery (SDC) | payer MEDICARE, OTHER ==
[2025-04-25] MEDS ORDERED: Propofol 200 MG/20 ML SDV ONE (07:06)
[2025-04-25] MEDS ORDERED: fentaNYL 100 MCG/2 ML SDV ONE (07:06)
[2025-04-25] MEDS: Lactated Ringers 1,000 ML IV SCH (07:51)
== END 2025-04-25 10:10 | disposition home or self-care (01) ==
LOC: JP.SDS 06:56
PROVIDERS: ATTEND Family Medicine
DX: R13.10 Dysphagia, unspecified (principal); K44.9 Diaphragmatic hernia without obstruction or gangrene
CPT/HCPCS: 43235; J2704; J3010; J7120